=== PATIENT | female | born 1950 | race Caucasian/White ===

== ENCOUNTER 2018-02-04 13:56 | Inpatient (IN) ==
[2018-02-04 14:39] LABS: Basophils % 0.3 % (0.0-0.8); Eosinophils # 0.1 10*3/uL (0.0-0.87); Eosinophils % 0.9 % (0.00-10.9); Hematocrit 45.7 VOL% (35.7-47.0); Hemoglobin 15.3 GM/DL (12.0-16.0); Immature Granulocytes % 0.4 %; Immature Granulocytes Absolute 0.05 #; Lymphocytes # 2.1 10*3/uL (1.4-4.0); Lymphocytes % 15.7 % (21.3-54.2); Mean Corpuscular HGB Conc 33.5 GM/DL (32-36); Mean Corpuscular Hemoglobin 33 PG (27-34); Mean Corpuscular Volume 97.4 FL (87-102); Mean Platelet Volume 8.7 FL (9.6-12.0); Monocytes # 0.9 10*3/uL (0.11-0.8); Monocytes % 6.6 % (1.7-12.7); Neutrophils # 10.3 10*3/uL (1.4-7.4); Neutrophils % 76.1 % (38.7-73.9); Platelet Count 275 T/CUMM (130-400); Red Blood Count 4.69 MC/CUMM (3.8-5.5); Red Cell Distribution Width 12.3 % (9.3-17.3); White Blood Count 13.5 T/CUMM (4-12)
[2018-02-04 14:46] LABS: Apearance,Urine CLOUDY (Clear); Bilirubin,Urine Negative (Negative); Blood, Urine Negative (Negative); Glucose,Urine (UA) Negative (Negative); Ketones,Urine Negative (Negative); Mucus,Urine Occasional /LPF (Occasional); Nitrite,Urine Negative (Negative); Protein,Urine Negative; RBC,Urine 2 /HPF (0-4); Squamous Epithelial Cell,Urine Occasional /HPF (0-10); Transitional Epi Cells,Urine Occasional /HPF (<1); Urine Color Amber (Yellow); Urine Specific Gravity 1.024 (1.001-1.035); Urine Urobilinogen < 2.0 EU/DL (0.2-1.0); WBC,Urine 2 /HPF (0-6)
[2018-02-04 15:11] LABS: Albumin 4.2 G/DL (3.4-5.0); Bilirubin,Total 0.8 MG/DL (0.2-1.0); Calcium 8.8 MG/DL (8.5-10.1); Osmolality,Calculated 277.5 MOS/KG (273-304); Total Protein 7.9 G/DL (6.4-8.3)
[2018-02-04] MEDS ORDERED: ceFAZolin 1,000 MG VIAL ONE ×3 (15:32→15:34)
[2018-02-04] MEDS ORDERED: MORPHINE 4 MG/1 ML VIAL IV STA (15:46)
[2018-02-04] MEDS ORDERED: PANTOPRAZOLE 40 MG VIAL IV STA (15:46)
[2018-02-04] MEDS ORDERED: ONDANSETRON 4 MG/2 ML VIAL IV STA (15:48)
[2018-02-04] MEDS ORDERED: MORPHINE 4 MG/1 ML VIAL ONE (16:00)
[2018-02-04] MEDS: SODIUM CHLORIDE 0.9% 1,000 ML IV SCH (16:27)
[2018-02-04] MEDS: ALUMINUM/MAGNES/SIMETH MAX STR 30 ML UDCUP PO PRN (20:52)
[2018-02-04] MEDS: ACETAMINOPHEN 325 MG TABLET PO PRN (20:52)
[2018-02-04] MEDS: cefOXitin 2,000 MG in SYRINGE 1 EACH IV SCH (22:40)
[2018-02-05] MEDS: SODIUM CHLORIDE 0.9% 1,000 ML IV SCH ×3 (03:08→22:27)
[2018-02-05] MEDS: cefOXitin 2,000 MG in SYRINGE 1 EACH IV SCH (05:58)
[2018-02-05 07:03] LABS: Albumin 3.1 G/DL (3.4-5.0); Bilirubin,Direct 0.14 MG/DL (0.0-0.20); Bilirubin,Indirect 0.7 MG/DL (0.0-1.0); Bilirubin,Total 0.8 MG/DL (0.2-1.0); Total Protein 7.1 G/DL (6.4-8.3)
[2018-02-05] MEDS ORDERED: DIAZEPAM 5 MG TABLET PO ONE (08:18)
[2018-02-05] MEDS ORDERED: GABAPENTIN 400 MG CAPSULE PO ONE (08:18)
[2018-02-05] MEDS ORDERED: FAMOTIDINE 20 MG TABLET PO ONE (08:18)
[2018-02-05] MEDS ORDERED: ACETAMINOPHEN 500 MG TABLET PO ONE (08:18)
[2018-02-05] MEDS ORDERED: BUPIVACAINE 0.25% /EPI 10 ML VIAL ONE (09:22)
[2018-02-05] MEDS ORDERED: TISSUE ADHESIVE 1 EACH APPLICATOR TOP ONE (09:22)
[2018-02-05] MEDS ORDERED: LIDOCAINE 1%/EPI INJ 20 ML VIAL ONE (09:22)
[2018-02-05] MEDS: ENOXAPARIN 40 MG/0.4 ML SYRINGE SUBCUT SCH (09:22)
[2018-02-05] MEDS ORDERED: PROPOFOL 200 MG/20 ML VIAL IV ONE (10:54)
[2018-02-05] MEDS ORDERED: ROCURONIUM 100 MG/10 ML VIAL IV ONE (10:55)
[2018-02-05] MEDS ORDERED: MIDAZOLAM 2 MG/2 ML VIAL ONE (10:55)
[2018-02-05] MEDS ORDERED: fentaNYL 100 MCG/2 ML VIAL ONE (10:55)
[2018-02-05] MEDS ORDERED: SEVOFLURANE 1 UNIT/15 MINUTE INH ONE (10:55)
[2018-02-05] MEDS ORDERED: ONDANSETRON 4 MG/2 ML VIAL IV PRN (11:07)
[2018-02-05] MEDS ORDERED: HYDROmorphone 2 MG/1 ML VIAL ONE (11:08)
[2018-02-05] MEDS ORDERED: ONDANSETRON 4 MG/2 ML VIAL ONE (11:08)
[2018-02-05] MEDS: HYDROmorphone 2 MG/1 ML VIAL IV PRN ×4 (11:10→11:25)
[2018-02-05] MEDS: MORPHINE 4 MG/1 ML VIAL IV PRN (13:10)
[2018-02-05] MEDS: ONDANSETRON 4 MG/2 ML VIAL IV PRN (16:35)
[2018-02-05] MEDS: ACETAMINOPHEN 325 MG TABLET PO PRN (18:46)
[2018-02-06 04:13] LABS: Basophils % 0.4 % (0.0-0.8); Eosinophils # 0.1 10*3/uL (0.0-0.87); Eosinophils % 0.6 % (0.00-10.9); Immature Granulocytes % 0.3 %; Immature Granulocytes Absolute 0.02 #; Lymphocytes # 2.4 10*3/uL (1.4-4.0); Lymphocytes % 29.8 % (21.3-54.2); Mean Corpuscular HGB Conc 38.5 GM/DL (32-36); Mean Corpuscular Hemoglobin 38 PG (27-34); Mean Corpuscular Volume 98.1 FL (87-102); Mean Platelet Volume 10.9 FL (9.6-12.0); Monocytes # 0.7 10*3/uL (0.11-0.8); Monocytes % 8.9 % (1.7-12.7); NRBC # 0.18 10*3/uL; Neutrophils # 4.8 10*3/uL (1.4-7.4); Platelet Count 836 T/CUMM (130-400); Red Cell Distribution Width 14.1 % (9.3-17.3)
[2018-02-06 04:21] LABS: PT Patient Result 10.4 SECS; Partial Thromboplastin Time 26.9 SECS (0-40)
[2018-02-06 04:31] LABS: Albumin 2.6 G/DL (3.4-5.0); Bilirubin,Total 0.8 MG/DL (0.2-1.0); Calcium 7.9 MG/DL (8.5-10.1); Osmolality,Calculated 275.4 MOS/KG (273-304); Potassium 4.3 MMOL/L (3.5-5.1); Total Protein 6.1 G/DL (6.4-8.3)
[2018-02-06 04:43] LABS: Hematocrit 30.6 VOL% (35.7-47.0)
[2018-02-06 04:44] LABS: Hemoglobin 11.7 GM/DL (12.0-16.0)
[2018-02-06 05:02] LABS: Band Neutrophils 2 % (0-10); Lymphocytes 38 % (20-55); Segmented Neutrophils 53 % (50-85); Total Cells Counted 100
[2018-02-06 05:03] LABS: Macrocytosis 2+; Platelet Estimate Increased
[2018-02-06] MEDS: ENOXAPARIN 40 MG/0.4 ML SYRINGE SUBCUT SCH (08:14)
[2018-02-06] MEDS: MORPHINE 4 MG/1 ML VIAL IV PRN (08:37)
[2018-02-06] MEDS: SODIUM CHLORIDE 0.9% 1,000 ML IV SCH ×2 (08:39→18:36)
[2018-02-06 19:55] LABS: Apearance,Urine CLEAR (Clear); Bilirubin,Urine Negative (Negative); Blood, Urine Negative (Negative); Glucose,Urine (UA) Negative (Negative); Ketones,Urine Negative (Negative); Nitrite,Urine Negative (Negative); Protein,Urine Negative; Urine Color Straw (Yellow); Urine Specific Gravity 1.008 (1.001-1.035); Urine Urobilinogen < 2.0 EU/DL (0.2-1.0); WBC,Urine <1 /HPF (0-6)
[2018-02-06] MEDS: ALUMINUM/MAGNES/SIMETH MAX STR 30 ML UDCUP PO PRN (21:46)
[2018-02-07] MEDS: SODIUM CHLORIDE 0.9% 1,000 ML IV SCH ×3 (04:24→16:39)
[2018-02-07 08:32] LABS: PT Patient Result 10.2 SECS
[2018-02-07 10:03] LABS: Basophils % 0.3 % (0.0-0.8); Eosinophils # 0.1 10*3/uL (0.0-0.87); Eosinophils % 1.1 % (0.00-10.9); Hematocrit 39.5 VOL% (35.7-47.0); Hemoglobin 12.9 GM/DL (12.0-16.0); Immature Granulocytes % 0.1 %; Immature Granulocytes Absolute 0.01 #; Lymphocytes # 2.4 10*3/uL (1.4-4.0); Lymphocytes % 34.1 % (21.3-54.2); Mean Corpuscular HGB Conc 32.7 GM/DL (32-36); Mean Corpuscular Hemoglobin 32 PG (27-34); Mean Corpuscular Volume 98.8 FL (87-102); Mean Platelet Volume 9.5 FL (9.6-12.0); Monocytes # 0.6 10*3/uL (0.11-0.8); Monocytes % 8.3 % (1.7-12.7); Neutrophils # 3.9 10*3/uL (1.4-7.4); Neutrophils % 56.1 % (38.7-73.9); Red Cell Distribution Width 12.6 % (9.3-17.3)
[2018-02-07 10:27] LABS: Platelet Count 219 T/CUMM (130-400)
[2018-02-07] MEDS ORDERED: INDOMETHACIN SUPP 50 MG SUPP RECTAL ONE (11:50)
[2018-02-07] MEDS: LACTATED RINGERS 1,000 ML IV SCH ×2 (13:35→20:23)
[2018-02-07] MEDS ORDERED: fentaNYL 100 MCG/2 ML VIAL ONE (13:58)
[2018-02-07] MEDS ORDERED: MIDAZOLAM 2 MG/2 ML VIAL ONE (13:58)
[2018-02-07] MEDS ORDERED: PROPOFOL 200 MG/20 ML VIAL IV ONE (14:00)
[2018-02-07] MEDS ORDERED: LIDOCAINE 2% 5 ML VIAL ONE (14:00)
[2018-02-07] MEDS ORDERED: ONDANSETRON 4 MG/2 ML VIAL ONE (14:00)
[2018-02-07] MEDS ORDERED: SUCCINYLCHOLINE 200 MG/10 ML VIAL ONE (14:00)
[2018-02-07] MEDS ORDERED: OCTREOTIDE 100 MCG/ML SYRINGE IV ONE (14:11)
[2018-02-07] MEDS ORDERED: GLUCAGON 1 MG VIAL ONE ×2 (14:56→15:51)
[2018-02-07] MEDS ORDERED: OCTREOTIDE 500 MCG in SODIUM CHLORIDE 0.9% 100 ML IV SCH (15:00)
[2018-02-07] MEDS ORDERED: SEVOFLURANE 1 UNIT/15 MINUTE INH ONE (15:57)
[2018-02-07] MEDS: ONDANSETRON 4 MG/2 ML VIAL IV PRN (17:12)
[2018-02-07] MEDS: PHENOL 1.4% THROAT SPRAY 177 ML BOTTLE PO PRN (20:29)
[2018-02-08] MEDS: PHENOL 1.4% THROAT SPRAY 177 ML BOTTLE PO PRN (03:18)
[2018-02-08 03:24] VITALS: BP 122/75
[2018-02-08] MEDS: LACTATED RINGERS 1,000 ML IV SCH (06:27)
== END 2018-02-08 10:42 | disposition home or self-care (01) | DRG 419 ==
LOC: N.ED 13:56 → N.EDINP 15:36 → N.3E 16:24
PROVIDERS: ADMIT Surgery; ATTEND Surgery
PROC: LAPCHOL (2018-02-05 09:55)
PROC: ERCPWSP (ICD-10-PCS; 2018-02-07 12:35)